=== PATIENT | female | born 2000 | race Caucasian/White ===

== ENCOUNTER 2023-07-31 10:56 | Emergency (ER) | payer OTHER ==
[~2023-07-31] VITALS: Ht 170.2 cm; Wt 117.9 kg
[~2023-07-31 10:56] MED LIST: CEPH500 PO; RXCEPH500 PO; SULTRIDS PO
[2023-07-31] MEDS ORDERED: ESCI20 PO (11:20)
[2023-07-31 12:15] VITALS: BP 123/98
[2023-07-31] MEDS ORDERED: OMEP20ER PO (13:13)
[2023-07-31] MEDS ORDERED: METO10 PO (13:13)
[2023-07-31] MEDS ORDERED: ONDA4ODT MM (13:13)
[2023-07-31] MEDS ORDERED: PROM12.5S PR (13:13)
== END 2023-07-31 13:00 | disposition home or self-care (01) ==
LOC: ER 10:56
DX: R10.13 Epigastric pain (principal); R11.2 Nausea with vomiting, unspecified; Z79.899 Other long term (current) drug therapy
CPT/HCPCS: 96372; 99283-25; A9270; J1790

== ENCOUNTER 2023-09-05 09:52 | Day surgery (SDC) | payer OTHER ==
[~2023-09-05] VITALS: Ht 170.2 cm; Wt 118.7 kg
[~2023-09-05 09:52] MED LIST changes: +ESCI20 PO; +METO10 PO; +OMEP20ER PO; +ONDA4ODT MM; +PROM12.5S PR
[2023-09-05 13:17] VITALS: BP 120/73
== END 2023-09-05 13:10 | disposition home or self-care (01) ==
LOC: ORSCSDS 09:52
PROVIDERS: Internal Medicine Gastroenterology
PROC: 0DB68ZX Excision of Stomach, Via Natural or Artificial Opening Endoscopic, Diagnostic (ICD-10-PCS; principal; 2023-09-05 11:30)
DX: R10.13 Epigastric pain (principal); R11.0 Nausea; Z68.41 Body mass index [BMI] 40.0-44.9, adult; E66.01 Morbid (severe) obesity due to excess calories; Z79.899 Other long term (current) drug therapy
CPT/HCPCS: 88305; 88342; J2001; J2704; J7120

== ENCOUNTER → 2025-03-03 | Outpatient (CLI) | payer OTHER ==
[2025-03-03 19:42] LABS: Bacterial Vaginosis PCR Negative (NEGATIVE); Candida Group, PCR NOT DETECTED (NOT DETECT); Candida glabrata-krusei, PCR NOT DETECTED (NOT DETECT)
== END ==
LOC: LAB 12:09 → LAB SHORT 12:09
PROVIDERS: Advanced Practice Midwife
DX: O46.90 Antepartum hemorrhage, unspecified, unspecified trimester (principal)
CPT/HCPCS: 81515

== ENCOUNTER 2025-03-31 07:33 | Observation (INO) | payer OTHER ==
[2025-03-31] VITALS (16 sets, daily range): BP systolic 102–143; BP diastolic 74–92
[~2025-03-31] VITALS: Ht 170.2 cm; Wt 103.0 kg
[2025-03-31] MEDS ORDERED: Metformin HCl750 MG PO (07:57)
[2025-03-31] MEDS ORDERED: PROZAC2010 PO (07:58)
[2025-03-31] MEDS ORDERED: Morphine Sulfate 4 MG/1 ML Injection IV ONE ×3 (08:10→10:50)
[2025-03-31] MEDS ORDERED: Ondansetron HCl 2 MG / ML 2ML Vial IV ONE (08:15)
[2025-03-31 08:23] LABS: BASOPHILS ABSOLUTE AUTO 0.03 K/mm3 (0.00-0.23); BASOPHILS PERCENT AUTO 1 % (0-2); EOSINOPHILS ABSOLUTE AUTO 0.13 K/mm3 (0.00-0.68); EOSINOPHILS PERCENT AUTO 3 % (0-6); Hematocrit 38.5 % (33.0-51.0); Hemoglobin 12.8 g/dL (11.5-16.0); IMMATURE GRAN ABSOLUTE AUTO 0.01 K/mm3 (0.00-0.10); IMMATURE GRAN PERCENT AUTO 0 % (0-1); LYMPHOCYTES ABSOLUTE AUTO 1.42 K/mm3 (0.84-5.20); LYMPHOCYTES PERCENT AUTO 29 % (21-46); MONOCYTES ABSOLUTE AUTO 0.46 K/mm3 (0.16-1.47); MONOCYTES PERCENT AUTO 9 % (4-13); Mean Corpuscular HGB Conc 33.2 g/dL (31.5-36.5); Mean Corpuscular Volume 90 fL (80-100); Mean Platelet Volume 10.7 fL (9.1-12.4); NEUTROPHILS ABSOLUTE AUTO 2.84 K/mm3 (1.96-9.15); NEUTROPHILS PERCENT AUTO 58 % (41-73); Platelet Count 237 K/mm3 (150-400); RDW Coefficient Variation 12.5 % (11.7-14.2); RDW Standard Deviation 41.1 fL (35.1-46.3); Red Blood Cell Count 4.27 M/mm3 (3.80-5.20); White Blood Cell Count 4.89 K/mm3 (4.00-11.30)
[2025-03-31] MEDS ORDERED: Lactated Ringer's 1,000 ML IV SCH (10:25)
[2025-03-31] MEDS ORDERED: Morphine Sulfate 4 MG/1 ML Injection ONE (10:52)
[2025-03-31] MEDS ORDERED: Bupivacaine 0.5% HCl 5 MG/ML 30MLVIAL ONE (10:54)
[2025-03-31] MEDS ORDERED: propofoL 20 ML IV ONE (11:04)
[2025-03-31] MEDS ORDERED: FentaNYL Citrate 50 MCG/ML 2 ML Injection ONE ×2 (11:04→13:00)
[2025-03-31] MEDS ORDERED: Rocuronium Bromide 10 MG/ML 5ML Injection IV ONE ×2 (11:05→11:06)
[2025-03-31] MEDS ORDERED: propofoL 40 ML IV ONE ×4 (11:23→13:14)
[2025-03-31] MEDS ORDERED: Metoclopramide HCl 5MG / ML 2ML Vial IV PRN (11:40)
[2025-03-31] MEDS ORDERED: FentaNYL Citrate 50 MCG/ML 2 ML Injection IV PRN ×3 (11:40→13:55)
[2025-03-31] MEDS ORDERED: HYDROmorphone HCl/Pf 1MG SYR IV PRN ×2 (11:40)
[2025-03-31] MEDS ORDERED: Ondansetron HCl 2 MG / ML 2ML Vial IV PRN ×2 (11:45→13:55)
[2025-03-31] MEDS ORDERED: Ondansetron HCl 2 MG / ML 2ML Vial ONE ×2 (12:12→14:03)
[2025-03-31] MEDS ORDERED: Dexamethasone Sod Phos 10 MG/ML 1ML VIAL ONE (12:12)
[2025-03-31] MEDS ORDERED: Ketorolac Tromethamine 30mg Vial ONE (13:20)
[2025-03-31] MEDS ORDERED: Sugammadex Sodium 200 MG/2ML SDV (100 MG/ML) ONE (13:24)
[2025-03-31] MEDS ORDERED: OxyCODONE HCL 5 MG TAB PO PRN ×2 (13:55)
[2025-03-31] MEDS ORDERED: DiphenhydrAMINE HCL 25 MG Cap PO PRN (13:55)
[2025-03-31] MEDS ORDERED: Ketorolac Tromethamine 30mg Vial IV PRN (13:55)
[2025-03-31] MEDS ORDERED: Metoclopramide HCl 10 MG Tab PO PRN (13:55)
[2025-03-31] MEDS ORDERED: HYDROmorphone HCl/Pf 1MG SYR ONE (14:18)
[2025-03-31] MEDS ORDERED: Metoclopramide HCl 5MG / ML 2ML Vial ONE (14:19)
[2025-03-31] MEDS ORDERED: Acetaminophen 500 MG Tab PO SCH (16:00)
== END 2025-03-31 18:16 | disposition home or self-care (01) ==
LOC: ER 07:33 → SURS 07:34 → ER 11:00 → SURS 15:15
PROVIDERS: Emergency Medicine; ADMIT Obstetrics & Gynecology
PROC: 10T24ZZ Resection of Products of Conception, Ectopic, Percutaneous Endoscopic Approach (ICD-10-PCS; principal; 2025-03-31 12:00)
PROC: 8E0W4CZ Robotic Assisted Procedure of Trunk Region, Percutaneous Endoscopic Approach (ICD-10-PCS; principal; 2025-03-31 12:00)
DX: O00.111 Right tubal pregnancy with intrauterine pregnancy (principal)
CPT/HCPCS: 85025; 86850; 86900; 86901; 88305; 96374; 96375; 96376; 99284-25; A9270; J1100; J1171; J1885; J2270; J2405; J2704; J2765; J3010; J7120

== ENCOUNTER 2025-08-08 05:44 | Day surgery (SDC) | payer OTHER ==
[2025-08-08] VITALS (11 sets, daily range): BP systolic 115–153; BP diastolic 77–90
[~2025-08-08] VITALS: Ht 170.2 cm; Wt 106.4 kg
[~2025-08-08 05:44] MED LIST changes: +IBUP800 PO; +METFORMIN HCL750 MG PO; +Metformin HCl750 MG PO; +OXYC5 PO; +PRISTIQ ER25 MG PO; +PROZAC2010 PO
--- NOTE | 2025-08-08 06:24 | NUR ---
Ambulatory in Day Surgery Patient confirms NPO status and agrees with scheduled surgery. Pre-Op teaching done. Pt verbalizes understanding. History, Chart, Medications and Allergies reviewed before start of procedure.Patient States Post-Procedure ride home has been arranged.
[2025-08-08] MEDS ORDERED: Bupivacaine 0.25% Epi 1:200000 30 ML Vial ONE ×2 (07:19→08:29)
[2025-08-08] MEDS ORDERED: FentaNYL Citrate 50 MCG/ML 2 ML Injection ONE ×4 (07:27→10:10)
[2025-08-08] MEDS ORDERED: FentaNYL Citrate 50 MCG/ML 2 ML Injection IV PRN ×2 (07:30→10:00)
[2025-08-08] MEDS ORDERED: Dexamethasone Sod Phos 10 MG/ML 1ML VIAL ONE (07:52)
[2025-08-08] MEDS ORDERED: Rocuronium Bromide 10 MG/ML 5ML Injection IV ONE ×2 (08:07→09:34)
[2025-08-08] MEDS ORDERED: Ondansetron HCl 2 MG / ML 2ML Vial ONE (09:38)
[2025-08-08] MEDS ORDERED: Sugammadex Sodium 200 MG/2ML SDV (100 MG/ML) ONE (09:38)
[2025-08-08] MEDS ORDERED: FLU VACC TS2025-26(6MOS UP)/PF 45 MCG/0.5 ML SYRINGE IM SCH (10:00)
[2025-08-08] MEDS ORDERED: Ondansetron HCl 2 MG / ML 2ML Vial IV PRN (10:00)
[2025-08-08] MEDS ORDERED: Ketorolac Tromethamine 30mg Vial ONE (10:09)
[2025-08-08] MEDS ORDERED: Metoclopramide HCl 5MG / ML 2ML Vial ONE (10:10)
[2025-08-08] MEDS ORDERED: Ketorolac Tromethamine 30mg Vial IV PRN (10:15)
--- NOTE | 2025-08-08 10:57 | NUR ---
ASSUMED CAR EOF [email or web address]. VSS. STILL DROWSY. LAP SITES X4 CDI. NO BLOOD NOTED TO PERIPAD AT THIS TIME. FAMILY IN ROOM UPON ADMISSION.
[2025-08-08] MEDS ORDERED: Ketorolac Tromethamine 30mg Vial IV SCH (12:00)
[2025-08-08] MEDS ORDERED: ACET500 PO (14:13)
[2025-08-08] MEDS ORDERED: TRANSDERM-SCOP1 EA13 TD (14:14)
--- NOTE | 2025-08-08 15:18 | NUR ---
SUMMARY NO ACUTE CHANGES POST ASSUMPTION OF CARE. VSS. MINIMAL VAGINAL BLEEDING NOTED. LAP SITES X4 CDI. PAD IN PLACE. PT RESTED POSTOP FOR 2 HOURS. VOIDED WELL, AMBULATED W/O ASSIST OR COMPLICATION. DENIED NAUSEA. REQUIRED PAIN MEDS AT 2 DIFFERENT INTERVALS BUT OTHERWISE TOLERATED SURGERY WELL. IV PULLED OUT. DR GONZALEZ ASSESSED PT - PROVIDED EDUCATION AND DEEMED PT OK TO DC. ORDERS RECEIVED. DC INSTRUCTIONS PROVIDED WIOTH MOTHER IN ROOM. BELONGINGS PACKED UP AND PT WHEELED OUT BY MOTHER AND [id number].
== END 2025-08-08 15:20 | disposition home or self-care (01) ==
LOC: ORSCMMR 05:44 → ORD 07:30 → ORSCMMR 07:30 → SURS 10:26 → ORSCMMR 15:20
PROVIDERS: Obstetrics & Gynecology
PROC: 0U524ZZ Destruction of Bilateral Ovaries, Percutaneous Endoscopic Approach (ICD-10-PCS; principal; 2025-08-08 07:30)
PROC: 0U5F4ZZ Destruction of Cul-de-sac, Percutaneous Endoscopic Approach (ICD-10-PCS; principal; 2025-08-08 07:30)
PROC: 3E1P78X Irrigation of Female Reproductive using Irrigating Substance, Via Natural or Artificial Opening, Diagnostic (ICD-10-PCS; principal; 2025-08-08 07:30)
DX: N80.103 Endometriosis of bilateral ovaries, unspecified depth (principal); N80.329 Endometriosis of the posterior cul-de-sac, unspecified depth; N80.3C2 Endometriosis of the left uterosacral ligament, unspecified depth; N73.6 Female pelvic peritoneal adhesions (postinfective); E28.2 Polycystic ovarian syndrome; F17.290 Nicotine dependence, other tobacco product, uncomplicated; F41.9 Anxiety disorder, unspecified; E66.01 Morbid (severe) obesity due to excess calories; Z68.36 Body mass index [BMI] 36.0-36.9, adult; Z79.84 Long term (current) use of oral hypoglycemic drugs; Z79.899 Other long term (current) drug therapy
CPT/HCPCS: 88305; A9270; J1100; J1885; J2405; J2704; J2765; J3010; J7120; Q9968